=== PATIENT | male | born 1990 | race Caucasian/White ===

== ENCOUNTER 2016-06-28 15:28 | Emergency (ER) | payer OTHER ==
[~2016-06-28] VITALS: Wt 114.0 kg
[2016-06-28] MEDS ORDERED: IBUPROFEN 600 MG TAB PO ONE (16:00)
--- NOTE | 2016-06-28 16:44 | RADRPT ---
PROCEDURE: XR Left Ankle. CLINICAL INDICATION: Trauma. Left ankle pain. TECHNIQUE: 3 views. Frontal, lateral, and oblique. COMPARISON: None. FINDINGS: There is a chip fracture arising from the distal tip of the fibula. This may be acute or chronic. There is no other fracture and there is no dislocation. There is lateral soft tissue swelling. Articular surfaces are intact. There is no lytic or blastic lesion. There is no radiopaque foreign body. IMPRESSION: 1. Chip fracture arising from the distal tip of the fibula. This may be acute or chronic. Clinical correlation advised. 2. Lateral soft tissue swelling. 3. Otherwise unremarkable study. RPTAT: QQ .Yusuf Parikh MD, MD Date Time Electronically viewed and signed by .Yusuf Parikh MD, on 06/28/2016 16:44 .R/
--- NOTE | 2016-06-28 16:45 | RADRPT ---
PROCEDURE: XR Left Foot. CLINICAL INDICATION: Left foot pain. TECHNIQUE: Three views. Frontal, lateral, and oblique. COMPARISON: None. FINDINGS: There is no fracture or dislocation. The soft tissues are normal. Articular surfaces are intact. There is a plantar calcaneal spur. There is no lytic or blastic lesion. There is no radiopaque foreign body. IMPRESSION: 1. Plantar calcaneal spur. 2. Otherwise normal images of the left foot. RPTAT: QQ .Yusuf Parikh MD, MD Date Time Electronically viewed and signed by .Yusuf Parikh MD, on 06/28/2016 16:44 .R/
[2016-06-28] MEDS ORDERED: IBUP-1542 PO (16:58)
--- NOTE | 2016-06-28 17:01 | ERD ---
ER Documentation Chief Complaint Date/Time DATE: 06/28/16 TIME: 16:59 Chief Complaint LEFT ANKLE INJURY HPI This 25-year-old male presents with left ankle pain after twisting 3 days ago. He has some swelling and pain in the bilateral malleolar area. He has no history of restricted range of motion weakness no fevers, redness, bleeding ROS All systems reviewed and are negative except as per history of present illness. Medications Home Meds Active Scripts Ibuprofen* (Motrin*) 600 Mg Tab, 600 MG PO Q6, #20 TAB Prov:RIVAS DUNBAR MD 06/28/16 PMhx/Soc History of Surgery: Yes (ppendectomy.) Anesthesia Reaction: No Hx Neurological Disorder: No Hx Respiratory Disorders: No Hx Cardiac Disorders: No Hx Psychiatric Problems: No Hx Miscellaneous Medical Probl: No Hx Alcohol Use: No Hx Substance Use: No Hx Tobacco Use: No Smoking Status: Never smoker Physical Exam Vitals Vital Signs Date Time Temp Pulse Resp B/P Pulse Ox O2 Delivery O2 Flow Rate FiO2 06/28/16 15:32 99.8 87 17 152/85 98 Physical Exam Const: [] Alert, [id number] per Head: Atraumatic Eyes: Normal Conjunctiva ENT: Normal External Ears, Nose and Mouth. Neck: Full range of motion..~ No meningismus. Resp: Clear to auscultation bilaterally Cardio: Regular rate and rhythm, no murmurs Abd: Soft, non tender, non distended. Normal bowel sounds Skin: No petechiae or rashes Back: No midline or flank tenderness Ext: No cyanosis, or edema. There is some diffuse swelling in the ankle joint. There is tenderness in the bilateral malleolar area. There is no appreciable significant fifth metatarsal tenderness. There is mild swelling on the dorsum of the foot. There is no signs or symptoms to suggest tendon or neurologic deficit. Neur: Awake and alert Psych: Normal Mood and Affect Results 24 hrs Current Medications Medications (Trade) Dose Ordered Sig/Juan Route PRN Reason Start Time Stop Time Status Last Admin Dose Admin Ibuprofen (Motrin) 600 mg ONCE ONCE PO 06/28/16 16:00 06/28/16 16:01 DC 06/28/16 15:57 Procedures/MDM X-ray left ankle 3V Interpreted by me: Bones: There is a likely avulsion fracture to the distal fibula old versus new. Joints: No dislocation. Impression-likely distal fibula avulsion fracture. X-ray left foot 3V Interpreted by me: Bones: No fracture Joints: No dislocation Foreign body: None impression-normal foot x-ray Patient was placed in left ankle stirrup splint. Splint Assessment: Neurovascularly intact post splint placement with good fit. Patient was given crutches with crutch training. Patient has signs and symptoms of likely distal fibula avulsion fracture without evidence of bacterial infection, tendon or neurologic deficit. Patient will be discharged home with instructions for nonweightbearing instructed to follow-up with primary doctor and orthopedist for the next week. Return sooner for fevers, redness, new symptoms. Departure Diagnosis: Primary Impression: Ankle fracture, left Encounter type: initial encounter Fracture type: closed Qualified Code: S82.892A - Ankle fracture, left, closed, initial encounter Condition: Stable Patient Instructions: Ankle Fracture (Distal Fibula), Closed Referrals: FERNANDA KRAFT MD Additional Instructions: Possible fracture seen on x-ray. See primary doctor and orthopedist for further evaluation next week. Recheck sooner for fevers, or redness, new or worsening symptoms. Elevate and ice at home. May need authorization from primary doctor for orthopedist visit. RIVAS DUNBAR MD Jun 28, 2016 17:01
[2016-06-28 17:34] VITALS: BP 122/65; PULSE 75; RESP 19; TEMP 98.2
== END 2016-06-28 17:35 | disposition home or self-care (01) ==
LOC: FTE 15:28
DX: S92.152A Displaced avulsion fracture (chip fracture) of left talus, initial encounter for closed fracture (principal); X50.1XXA Overexertion from prolonged static or awkward postures, initial encounter; Y92.9 Unspecified place or not applicable
CPT/HCPCS: 29515; 73610; 73630; Z7502; Z7610

== ENCOUNTER 2016-09-27 07:50 | Emergency (ER) | payer OTHER ==
[~2016-09-27] VITALS: Ht 170.2 cm; Wt 112.0 kg
[~2016-09-27 07:50] MED LIST: IBUP-1542 PO
[2016-09-27 07:55] VITALS: Ht 170.2 cm; Wt 112.0 kg
[2016-09-27] MEDS ORDERED: SODI30SP2 NS (08:21)
[2016-09-27] MEDS ORDERED: BENZ100C70 PO (08:21)
[2016-09-27] MEDS ORDERED: AZIT250T94 PO (08:21)
[2016-09-27] MEDS ORDERED: IBUP-1542 PO (08:22)
--- NOTE | 2016-09-27 08:26 | ERD ---
ER Documentation Chief Complaint Date/Time DATE: 09/27/16 TIME: 08:22 Chief Complaint Complains of fever x 2 days ago HPI She is a 25-year-old male who presents for intermittent fevers, cough rhinorrhea and episodes of epistaxis. Patient states his symptoms are 5 days ago. Patient states his cough is productive in nature with yellow phlegm production. Patient reports tactile fevers. Patient reports taking NyQuil no alleviation of symptoms. Patient reports yellow rhinorrhea. Patient also reports body aches. Patient states he has had 2 episodes of epistaxis due to frequent coughing spells. Patient denies any blood thinner use. Patient states he often has nosebleeds. Patient denies picking in his nose. Patient denies any chest pain, shortness of breath or LOC. Patient did have bilateral ear pain which is now resolved.. No recent travel. No sick contacts. ROS All systems reviewed and are negative except as per history of present illness. Medications Home Meds Active Scripts Ibuprofen* (Motrin*) 600 Mg Tab, 600 MG PO Q6, #30 TAB Prov:GUZMAN FLORENCE PA-C 09/27/16 Benzonatate* (Tessalon Perle*) 100 Mg Capsule, 100 MG PO Q8H Y for COUGH, #20 CAP Prov:GUZMAN FLORENCE PA-C 09/27/16 Azithromycin* (Zithromax*) 250 Mg Tablet, 250 MG PO .ZPACK DIRECTED, #6 TAB TAKE 500 MG (2 TABS) THE FIRST DAY THEN 250 MG (1 TAB) DAYS 2-5 Prov:GUZMAN FLORENCE PA-C 09/27/16 Sodium Chloride (Saline Nasal Ly[place]) 30 Ml Ly[place], 30 ML NS BID, #1 BOT Prov:GUZMAN FLORENCE PA-C 09/27/16 Ibuprofen* (Motrin*) 600 Mg Tab, 600 MG PO Q6, #20 TAB Prov:RIVAS DUNBAR MD 06/28/16 Allergies Allergies: Coded Allergies: No Known Allergy (Unverified , 09/27/16) PMhx/Soc Medical and Surgical Hx: pt denies Medical Hx History of Surgery: Yes (ppendectomy.) Anesthesia Reaction: No Hx Neurological Disorder: No Hx Respiratory Disorders: No Hx Cardiac Disorders: No Hx Psychiatric Problems: No Hx Miscellaneous Medical Probl: No Hx Alcohol Use: No Hx Substance Use: No Hx Tobacco Use: No Physical Exam Vitals Vital Signs Date Time Temp Pulse Resp B/P Pulse Ox O2 Delivery O2 Flow Rate FiO2 09/27/16 07:55 98.1 99 20 138/82 97 Physical Exam GENERAL: Well-developed, well-nourished male. Appears in no acute distress. Abdominal retractions, no nasal flaring. Speaking in full sentences. HEAD: Normocephalic, atraumatic. No deformities or ecchymosis. EYE: Pupils equal, round, and reactive to light. EOMs intact. No conjunctival erythema. No eye discharge. ENT: External ear without any masses or tenderness. TM visualized bilaterally, non-erythematous, non-bulging. Nasal mucosa pink with no discharge. No active bleeding. No blood noted in the posterior oropharynx. Oropharynx is pink without any tonsillar erythema or exudates. No uvula deviation. No kissing tonsils. NECK: Supple. No meningismus. Normal ROM of the neck. LUNG: Clear to auscultation bilaterally. No rhonchi, wheezing, rales or coarse breath sounds. HEART: Regular rate and rhythm. No murmurs, rubs or gallops. BACK: No midline tenderness. EXTREMITES: Equal pulses bilaterally. No peripheral clubbing, cyanosis or edema. No unilateral leg swelling. NEUROLOGIC: Alert and oriented to person, place and time. Moving all four extremities. 5/5 strength in all extremities. Normal speech. Steady gait. SKIN: Normal color. Warm and dry. No rashes or lesions. Procedures/MDM MEDICAL DECISION MAKING: This is a 25-year-old male who presents with intermittent fevers, cough, rhinorrhea and episodes of epistaxis 5 days. Vital signs were reviewed. Patient was afebrile. Patient was not hypoxic. ENT exam was normal. Lung exam was normal. Given these findings, the patients presentation is most consistent with acute bronchitis and anterior epistaxis secondary to coughing.. I have a much lower clinical concern for pneumonia, meningitis, sinusitis, otitis externa, acute otitis media, strep pharyngitis, epiglottitis or peritonsillar abscess. Low suspicion for posterior epistaxis, anticoagulopathy disorders, nasal trauma, blood thinner use induced epistaxis. PRESCRIPTIONS: Ibuprofen, Tessalon Perles, Zithromax, saline nasal spray DISCHARGE: At this time, patient is stable for discharge and outpatient management. Patient was provided with referral information for an ENT specialist for his recurrent epistaxis. Supportive therapies such as OTC throat lozenges, salt water gurgles, popsicles and jello discussed. I have instructed the patient to follow-up with his/her primary care physician in 1-2 days. I have instructed the patient to promptly return to the ER for any new or worsening symptoms including increased pain, swelling, fever, nausea, vomiting, weakness or difficulty breathing. The patient and/or family expressed understanding of and agreement with this plan. All questions were answered. Home care instructions were provided. Departure Diagnosis: Primary Impression: Acute bronchitis Bronchitis organism: unspecified organism Qualified Code: J20.9 - Acute bronchitis, unspecified organism Additional Impression: Epistaxis Condition: Stable Patient Instructions: Acute Bronchitis Referrals: LOKI FELICIANO MD, JEFFREY W. MD EUBANKS, HAYWARD L. M.D. LANDMAN,TANIA BARAJAS MD, MD [facility] YOU HAVE RECEIVED A MEDICAL SCREENING EXAM AND THE RESULTS INDICATE THAT YOU DO NOT HAVE A CONDITION THAT REQUIRES URGENT TREATMENT IN THE EMERGENCY DEPARTMENT. FURTHER EVALUATION AND TREATMENT OF YOUR CONDITION CAN WAIT UNTIL YOU ARE SEEN IN YOUR DOCTORS OFFICE WITHIN THE NEXT 1-2 DAYS. IT IS YOUR RESPONSIBILITY TO MAKE AN APPOINTMENT FOR FOLOW-UP CARE. IF YOU HAVE A PRIMARY DOCTOR --you should call your primary doctor and schedule an appointment IF YOU DO NOT HAVE A PRIMARY DOCTOR YOU CAN CALL OUR PHYSICIAN REFERRAL HOTLINE AT IF YOU CAN NOT AFFORD TO SEE A PHYSICIAN YOU CAN CHOSE FROM THE FOLLOWING [facility] CLINICS [facility] [address] [facility] [address] [facility] [facility] [address] [facility] [address] [facility] [address] [facility]. [facility]. [address] [facility]. [facility] YOU HAVE RECEIVED A MEDICAL SCREENING EXAM AND THE RESULTS INDICATE THAT YOU DO NOT HAVE A CONDITION THAT REQUIRES URGENT TREATMENT IN THE EMERGENCY DEPARTMENT. FURTHER EVALUATION AND TREATMENT OF YOUR CONDITION CAN WAIT UNTIL YOU ARE SEEN IN YOUR DOCTORS OFFICE WITHIN THE NEXT 1-2 DAYS. IT IS YOUR RESPONSIBILITY TO MAKE AN APPOINTMENT FOR FOLOW-UP CARE. IF YOU HAVE A PRIMARY DOCTOR --you should call your primary doctor and schedule and appointment IF YOU DO NOT HAVE A PRIMARY DOCTOR YOU CAN CALL OUR PHYSICIAN REFERRAL HOTLINE AT . IF YOU CAN NOT AFFORD TO SEE A PHYSICIAN YOU CAN CHOSE FROM THE FOLLOWING [facility] INSTITUTIONS: [facility] [address] [place] [address] [facility] [address] [place] [address] [facility] [address] [place] [address] Additional Instructions: Call your primary care doctor TOMORROW for an appointment during the next 1-2 days.See the doctor sooner or return here if your condition worsens before your appointment time. Follow up with ENT specialist for concerns of recurrent nosebleeds. See referral list. GUZMAN FLORENCE PA-C Sep 27, 2016 08:26
== END 2016-09-27 08:43 | disposition home or self-care (01) ==
LOC: FTE 07:50
DX: J20.9 Acute bronchitis, unspecified (principal); R04.0 Epistaxis
CPT/HCPCS: 99284

== ENCOUNTER 2017-08-03 09:06 | Emergency (ER) | END 2017-08-03 11:37 | disposition home or self-care (01) ==

== ENCOUNTER 2018-04-05 21:14 | Emergency (ER) | payer OTHER ==
[~2018-04-05] VITALS: Ht 170.2 cm; Wt 128.0 kg
[~2018-04-05 21:14] MED LIST changes: +AZIT250T PO; +BENZ-6 PO; +DOLU50TA PO; +EMTR1TAB11 PO; +SODI30SP2 NS
[2018-04-05 21:27] VITALS: BP 164/95; PULSE 85; RESP 16; Ht 170.2 cm; Wt 128.0 kg
[2018-04-05] MEDS ORDERED: BACI28.34 TOP (23:31)
--- NOTE | 2018-04-06 00:04 | ERD ---
ER Documentation Chief Complaint Chief Complaint LEFT 4TH FINGER LAC HPI This patient is a 27-year-old male with no significant medical history presenting to the emergency department complaining of left fourth finger skin avulsion which occurred just prior to arrival after accidentally scraping it against a piece of metal on a toolbox. The patient is unsure exactly what the object was. His tetanus is up-to-date. He reports throbbing pain which is rated left hand dominant. He took the medication for relief of symptoms. He denies any other symptoms or injuries at this time. ROS All systems reviewed and are negative except as per history of present illness. Medications Home Meds Active Scripts Bacitracin* (Bacitracin Zinc Oint*) 28.35 Gm Oint, 1 APPLIC TOP BID, #1 TUB APPLI TO Prov:ABIGAIL OCHOA PA-C 04/05/18 Emtricitabine-Tenofovir* (Truvada*) 200-300 Mg Tablet, 1 TAB PO DAILY for 30 Days, TAB Prov:AKHIL FERED PA-C 08/03/17 Dolutegravir Sodium (Tivicay) 50 Mg Tablet, 50 MG PO DAILY for 30 Days, TAB Prov:AKHIL FREED PA-C 08/03/17 Ibuprofen* (Motrin*) 600 Mg Tab, 600 MG PO Q6, #30 TAB Prov:GUZMAN FLORENCE PA-C 09/27/16 Benzonatate* (Tessalon Perle*) 100 Mg Capsule, 100 MG PO Q8H PRN for COUGH, #20 CAP Prov:GUZMAN FLORENCE PA-C 09/27/16 Azithromycin* (Zithromax*) 250 Mg Tablet, 250 MG PO .ZPACK DIRECTED, #6 TAB TAKE 500 MG (2 TABS) THE FIRST DAY THEN 250 MG (1 TAB) DAYS 2-5 Prov:GUZMAN FLORENCE PA-C 09/27/16 Sodium Chloride (Saline Nasal [place]) 30 Ml [place], 30 ML NS BID, #1 BOT Prov:GUZMAN FLORENCE PA-C 09/27/16 Ibuprofen* (Motrin*) 600 Mg Tab, 600 MG PO Q6, #20 TAB Prov:RIVAS DUNBAR MD 06/28/16 Allergies Allergies: Coded Allergies: No Known Allergy (Unverified , 09/27/16) PMhx/Soc History of Surgery: Yes (Appendectomy) Anesthesia Reaction: No Hx Neurological Disorder: No Hx Respiratory Disorders: No Hx Cardiac Disorders: No Hx Psychiatric Problems: No Hx Miscellaneous Medical Probl: No Hx Alcohol Use: No Hx Substance Use: No Hx Tobacco Use: No Smoking Status: Never smoker FmHx Family History: No diabetes Physical Exam Vitals Vital Signs Date Temp Pulse Resp B/P (MAP) Pulse Ox O2 O2 Flow FiO2 Time Delivery Rate 04/05/18 99.3 85 16 164/95 98 21:27 (118) Physical Exam Const: No acute distress Head: Atraumatic Eyes: Normal Conjunctiva ENT: Normal External Ears, Nose and Mouth. Neck: Full range of motion. No meningismus. Resp: No respiratory distress. Skin: No petechiae or rashes Back: No midline or flank tenderness Ext: There is an approximate 3 cm x 0.5 cm skin avulsion noted to the dorsal aspect of the left fourth finger with no active bleeding or evidence of foreign body. Patient is neurovascularly intact distally. Neur: Awake and alert Psych: Normal Mood and Affect Procedures/MDM Patient is a 27-year-old male presenting to the emergency department complaining of left fourth finger pain. History and physical examination was consistent with skin avulsion. No indication for suture repair at this time. Patient is neurovascularly intact. There is no evidence of foreign body. Patient's tetanus is up-to-date. Skin avulsion repair by me: Anesthesia: None Location: Left fourth finger Tendon/Joint/Nerves: No injury Foreign body: None detected after copious irrigation and exploration Technique: Tissue adhesive Complexity: No subcutaneous sutures/mucosal repair/edge excision Post Closure Length: 3 cm x 0.5 cm Patient's bleeding was easily controlled in the department and there is no indication of anemia. No evidence of compartment syndrome, neurologic injury, vascular injury, open joint, tendon laceration, or foreign body. Patient is appropriate for outpatient follow up. 48 hour wound check. Scar minimization instructions given. No evidence of life-threatening pathology at time of discharge. Pt/family in agreement with discharge plan/diagnosis. Pt/family advised to return immediately with any new or worsening symptoms. Follow-up with primary care physician within the next 1- 2 days. Patient's blood pressure was elevated (>120/80) but appears stable without evidence of hypertension emergency or urgency. The patient is to follow-up and pursue outpatient monitoring and therapy with their primary care physician within 1 week and return immediately if they have any new, worsening, or concerning symptoms. Disclaimer: Inadvertent spelling and grammatical errors are likely due to EHR/dictation software use and do not reflect on the overall quality of patient care. Also, please note that the electronic time recorded on this note does not necessarily reflect the actual time of the patient encounter. Departure Diagnosis: Primary Impression: Skin avulsion Condition: Fair Patient Instructions: Skin Avulsion Referrals: [facility] YOU HAVE RECEIVED A MEDICAL SCREENING EXAM AND THE RESULTS INDICATE THAT YOU DO NOT HAVE A CONDITION THAT REQUIRES URGENT TREATMENT IN THE EMERGENCY DEPARTMENT. FURTHER EVALUATION AND TREATMENT OF YOUR CONDITION CAN WAIT UNTIL YOU ARE SEEN IN YOUR DOCTORS OFFICE WITHIN THE NEXT 1-2 DAYS. IT IS YOUR RESPONSIBILITY TO MAKE AN APPOINTMENT FOR FOLOW-UP CARE. IF YOU HAVE A PRIMARY DOCTOR --you should call your primary doctor and schedule an appointment IF YOU DO NOT HAVE A PRIMARY DOCTOR YOU CAN CALL OUR PHYSICIAN REFERRAL HOTLINE AT IF YOU CAN NOT AFFORD TO SEE A PHYSICIAN YOU CAN CHOSE FROM THE FOLLOWING [facility] CLINICS [facility] [address] [facility]. [facility] [address] [facility] [address] [facility] [facility] [address] [facility]. [facility] [address] [facility]. [facility]. [address] [place] Additional Instructions: Call your primary care doctor TOMORROW for an appointment during the next 1-2 days.See the doctor sooner or return here if your condition worsens before your appointment time. ABIGAIL OCHOA PA-C Apr 06, 2018 00:04
== END 2018-04-06 00:30 | disposition home or self-care (01) ==
LOC: FTE 21:14
DX: S61.205A Unspecified open wound of left ring finger without damage to nail, initial encounter (principal); W26.8XXA Contact with other sharp object(s), not elsewhere classified, initial encounter; Y92.9 Unspecified place or not applicable
CPT/HCPCS: 12002; Z7502